=== PATIENT | male | born 1960 | race Caucasian/White ===

== ENCOUNTER 2023-11-01 17:10 | Emergency (ER) | payer OTHER, SELFPAY ==
[2023-11-01 17:11] VITALS: BP 165/74; PULSE 97; RESP 17; TEMP 37; O2SAT 97
[2023-11-01] MEDS: AMPICILLIN/SULBACTAM 3 GM in Normal Saline 100 ML IVPB (17:40)
[2023-11-01] MEDS: MORPHine 10 MG/ML VIAL 6 MG IVP ×2 (17:41→20:54)
[2023-11-01] MEDS: Ondansetron 4 MG/2 ML VIAL IVP (17:41)
[2023-11-01] MEDS: Normal Saline 1,000 ML 1000 ML IV (17:50)
--- NOTE | 2023-11-01 18:12 | DI.RAD_ITS ---
Exam(s) XR HAND LT COMPLETE EXAM: XR HAND LT COMPLETE CLINICAL HISTORY: dog bite. TECHNIQUE: 2D digital imaging was performed. COMPARISON: No exams were available for comparison FINDINGS: 3 views There is soft tissue swelling of the dorsal aspect of the hand. Small amount of air-gas is seen in d eep subcutaneous soft tissues. There is no radiopaque foreign body. No obvious fractures. There is a semi lunar linear lucency in the head-neck of the 2nd metacarpal which is probably artifact relate d to overlying soft tissue creases. The metacarpophalangeal joints appear intact. There are moderat e-advanced degenerative changes in the 1st carpometacarpal joint at the base of the thumb. IMPRESSION: Subtle osseous finding in the head-neck of the 2nd metacarpal, probably artifact. Correlation with s ite of tenderness is recommended. Soft tissue swelling and some gas in the deep subcutaneous tissues. No radiopaque foreign body. DATA REPOSITORY: RADIATION DOSE DELIVERED:
[2023-11-01] MEDS: ACETAMINOPHEN 1,000 MG/100 ML BTL 400 MG IVPB (18:26)
[2023-11-01] MEDS: Lidocaine/Epinephri/Tetracaine Topical Gel 3 ML TP (18:27)
[2023-11-01] MEDS: Ketorolac 15 MG/ML VIAL 10 MG IVP (18:27)
--- NOTE | 2023-11-01 19:33 | W.ED.GENAD ---
Discharge Plan Disposition Patient Disposition: Transfer-Acute Inpatient Care Specific Acute Inpt Facility: [facility] Condition: Fair Discharge Details Chief Complaint: AnimalBite Clinical Impression: Dog bite of left hand Primary Care Provider: Unknown,Unknown ED Provider: Gonzalez Contreras [facility] General Date/Time Provider Initiated Documentation: 11/01/23 17:20. Limitations to Documentation: no limitations. Information obtained by: patient and EMS. HPI Narrative: 63-year-old gentleman without significant past medical history presents for evaluation of left hand dog bite. Patient comes by EMS. EMS reports on their arrival they noted that there was squirting bleeding concerning for possible arterial bleeding and a pressure dressing was applied. 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 He reports that the boxer is deaf and got startled. The dog is a pet and vaccinated. The patient reports pain is severe, denies any numbness or tingling. Reports that the pain is worse with any movement of the hand. Related Data Allergies Allergy/AdvReac Type Severity Reaction Status Date / Time No Known Allergies Allergy Unverified 11/01/23 17:16 General Stated Complaint: AnimalBite MERLYN: 2 Exam Narrative Exam Narrative: Review of Systems: All systems reviewed & are unremarkable except as noted in HPI and below Well-developed, appears very uncomfortable Diaphoretic NCAT PERRL, normal conjunctiva RRR Unlabored respiratory effort Nondistended abdomen Left hand with large laceration over the dorsal aspect, dressing by EMS taken down, no arterial bleeding noted, venous oozing noted, on exploration of the hand there is tendon and bone exposure, no obvious foreign body, sensation intact in all distributions, does have intact range of motion, strength may be limited by pain Course Vital Signs Vital signs: Vital Signs Temperature 37.0 C 11/01/23 17:11 Pulse 97 H 11/01/23 17:11 Respiratory Rate 17 11/01/23 17:11 Blood Pressure 165/74 H 11/01/23 17:11 Pulse Oximetry 97 11/01/23 17:11 Temperature 37.0 C 11/01/23 17:11 Temperature Source Temporal Artery Scan 11/01/23 17:11 Pulse 97 H 11/01/23 17:11 Respiratory Rate 17 11/01/23 17:11 Respiratory Effort Normal, Non-Labored 11/01/23 18:31 Blood Pressure 165/74 H 11/01/23 17:11 Blood Pressure Position Sitting 11/01/23 17:11 Pulse Oximetry 97 11/01/23 17:11 Oxygen Delivery Method Room Air 11/01/23 17:11 Oxygen Flow Rate 0 11/01/23 17:11 Pain Level 9 11/01/23 17:41 Medical Decision Making Emergent evaluation of left hand dog bite. Patient reports that he is mostly [id number]. Dog is vaccinated so there is no concern for rabies. Tetanus has been updated. Initial concerns for potential arterial bleeding per EMS report however on my evaluation there does not appear to be any arterial bleeding. Bleeding is fairly well-controlled with pressure dressing. Obvious large wound noted. Concern for extensive soft tissue damage and potential bony and tendinous injury. IV antibiotics have been given in addition to pain control. Given the extent and complication of this laceration, I have discussed with plastic surgery at [facility] and the patient has been accepted for an ED to ED transfer for further evaluation and repair. The x-ray was concerning for possible fracture of the second metacarpal and there is significant tenderness to this is likely true injury. Quality:SDOH Health Related Social Needs: No Data to Display [facility] All Active Problems (Updated 11/01/23 @ 19:44 by Gonzalez Contreras MD) Dog bite of left hand (Acute) Social History Smoking risk assessment performed?: No
== END 2023-11-01 21:03 | disposition short-term general hospital (02) ==
PROVIDERS: Emergency Provider Emergency Medicine
DX: S61.452A Open bite of left hand, initial encounter (principal); W54.0XXA Bitten by dog, initial encounter
CPT/HCPCS: 96365; 96367; 96375; 96376; 99285; 73130; J0131; J0295; J1885; J2270; J2405